=== PATIENT | male | born 1990 ===

== ENCOUNTER 2017-04-14 10:23 | Emergency (ER) | payer OTHER ==
[~2017-04-14] VITALS: Ht 167.6 cm; Wt 76.2 kg
[2017-04-14] MEDS ORDERED: SULFAMETHOXAZOL1 TA1 PO (15:10)
== END 2017-04-14 17:04 | disposition home or self-care (01) ==
LOC: ER 10:23
DX: L02.214 Cutaneous abscess of groin (principal)

== ENCOUNTER → 2017-06-16 | Emergency (ER) | payer OTHER ==
[~2017-06-16] VITALS: Ht 167.6 cm; Wt 70.3 kg
[~2017-06-16] MED LIST: SULFAMETHOXAZOL1 TA1 PO
== END | disposition home or self-care (01) ==
LOC: ER 17:55
DX: J31.0 Chronic rhinitis (principal); J06.9 Acute upper respiratory infection, unspecified

== ENCOUNTER 2018-04-10 10:09 | Emergency (ER) | payer OTHER ==
[~2018-04-10] VITALS: Ht 172.7 cm; Wt 70.3 kg
== END 2018-04-10 14:47 | disposition home or self-care (01) ==
LOC: ER 10:09
DX: N39.0 Urinary tract infection, site not specified (principal)

== ENCOUNTER 2018-05-27 17:54 | Emergency (ER) | payer OTHER ==
[~2018-05-27] VITALS: Ht 172.7 cm; Wt 70.3 kg
== END 2018-05-27 19:18 | disposition home or self-care (01) ==
LOC: ER 17:54
DX: K61.0 Anal abscess (principal)

== ENCOUNTER 2018-10-07 07:29 | Emergency (ER) | payer OTHER ==
[~2018-10-07] VITALS: Ht 172.7 cm; Wt 70.3 kg
[2018-10-07] MEDS ORDERED: LEXAPRO5 MG (07:47)
[2018-10-07] MEDS ORDERED: ABILIFY10 MG (07:47)
[2018-10-07] MEDS ORDERED: KETO10TA2 PO (08:38)
[2018-10-07] MEDS ORDERED: AMOXICILLIN500 M1 PO (08:38)
[2018-10-07] MEDS ORDERED: INTESTINEX680 M1 PO (08:38)
== END 2018-10-07 08:47 | disposition home or self-care (01) ==
LOC: ER 07:29
DX: K11.6 Mucocele of salivary gland (principal)

== ENCOUNTER 2018-10-23 06:58 | Emergency (ER) | payer OTHER ==
[~2018-10-23] VITALS: Ht 172.7 cm; Wt 70.3 kg
[~2018-10-23 06:58] MED LIST changes: +ABILIFY10 MG; +AMOXICILLIN500 M1 PO; +INTESTINEX680 M1 PO; +KETO10TA2 PO; +LEXAPRO5 MG
[2018-10-23] MEDS ORDERED: ABILIFY10 MG (08:01)
[2018-10-23] MEDS ORDERED: LEXAPRO5 MG (08:02)
== END 2018-10-23 09:04 | disposition home or self-care (01) ==
LOC: ER 06:58
DX: B00.9 Herpesviral infection, unspecified (principal)

== ENCOUNTER 2018-11-12 18:03 | Emergency (ER) | payer OTHER ==
[~2018-11-12] VITALS: Ht 172.7 cm; Wt 70.3 kg
[2018-11-12] MEDS ORDERED: DOVATO 50-3001 EACH (18:46)
== END 2018-11-12 20:45 | disposition home or self-care (01) ==
LOC: ER 18:03
DX: B96.0 Mycoplasma pneumoniae [M. pneumoniae] as the cause of diseases classified elsewhere (principal); B34.9 Viral infection, unspecified; R50.9 Fever, unspecified; R51 Headache